=== PATIENT | female | born 2000 | race Two or more races ===

== ENCOUNTER 2023-08-11 16:17 | Emergency (ER) | payer BC, OTHER ==
[~2023-08-11] VITALS: Ht 177.8 cm; Wt 86.7 kg
[2023-08-11 17:27] LABS: Urine Bacteria None Seen /hpf (None Seen)
[2023-08-11 17:50] LABS: Urine Blood 3+ /uL (Negative); Urine Clarity Clear (Clear); Urine Color Yellow (Yellow); Urine Mucus FEW (None Seen); Urine Protein, UAD TRACE (Negative); Urine Specific Gravity 1.032 (1.001-1.035); Urine Urobilinogen Normal (Negative); Urine WBC 2 /hpf (0 - 5); Urine pH 5.5 (5.0-9.0)
[2023-08-11 19:17] LABS: Hematocrit 42.2 % (36.0-46.0); Hemoglobin 14.4 g/dL (12.2-16.2); Mean Corpuscular Hemoglobin 31.3 pg (28.0-32.0); Mean Corpuscular Hgb Conc. 34.2 g/dL (32.0-36.0); Mean Corpuscular Volume 91.6 fL (80.0-100.0); Red Blood Cells 4.61 10^6/uL (4.0-5.20); Red Cell Distribution Width 13.2 % (11.8-14.3); White Blood Cell 5.8 10^3/uL (4.4-10.8)
[2023-08-11 19:21] LABS: Basophils % (manual) 0 (0.0-2.0); Blast Cells 0; Metamyelocytes % 0; Myelocytes % 0; Promyelocytes % 0; Reactive Lymphocytes 0
[2023-08-11 19:32] LABS: Alanine Aminotransferase 29 U/L (7-40); Albumin 4.2 g/dL (3.2-4.8); Alkaline Phosphatase 48 U/L (46-116); Anion Gap 8 (5-15); Aspartate Aminotransferase 22 U/L (13-40); BUN/Creatinine Ratio 13.6 (10.0-20.0); Blood Urea Nitrogen 11 mg/dL (9-23); Calcium 9.6 mg/dL (8.7-10.4); Carbon Dioxide 24 mmol/L (20-30); Chloride 109 mmol/L (98-107); Glucose 88 mg/dL (74-106); Lipase 42 U/L (12-53); Potassium 3.6 mmol/L (3.5-5.1); Sodium 141 mmol/L (136-145)
[2023-08-11 19:33] LABS: Bilirubin, Total 0.5 mg/dL (0.2-1.0)
[2023-08-11 19:51] LABS: Band Neutrophils % (manual) 13; Eosinophils % (manual) 3 (0-7); Lymphocytes % (manual) 30 (10.0-50.0); Monocytes % (manual) 8 (0-12)
[2023-08-11 19:52] LABS: Platelet Estimate Adequate
[2023-08-11] MEDS ORDERED: DIPH2.5T73 PO (20:48)
[2023-08-11] MEDS ORDERED: LOPE1TAB9 PO (20:49)
[2023-08-11 21:08] VITALS: BP 118/82; PULSE 79; RESP 17; TEMP 98.5; O2SAT 99
== END 2023-08-11 21:12 | disposition home or self-care (01) ==
LOC: ER 16:17
DX: K52.9 Noninfective gastroenteritis and colitis, unspecified (principal)
CPT/HCPCS: 36415; 74176; 80053; 81001; 81025; 83690; 85007; 85027